=== PATIENT | male | born 1985 | race African-American/Black ===

== ENCOUNTER 2019-04-25 00:29 | Emergency (ER) | payer MEDICAID, OTHER ==
[2019-04-25] MEDS ORDERED: Acetaminophen 500 MG Tab PO ONE (00:56)
--- NOTE | 2019-04-25 01:02 | EDM.PDOC ---
ED HPI GENERAL MEDICAL PROBLEM - General Chief Complaint: General Stated Complaint: POSSIBLE HIGH BLOOD PRESSURE Time Seen by Provider: 04/25/19 00:49 - History of Present Illness INITIAL COMMENTS - FREE TEXT/NARRATIVE: HISTORY AND PHYSICAL: History of present illness: The patient is a 33-year-old male with a known history of type 2 diabetes for which he has oral medication and hypercholesterolemia and who follows at [facility] with Dr. Quintero who presents tonight with concerns about feeling pressure throughout his whole body and feeling his blood pumping all over his body and having concerns about being alone and going to sleep. The patient says he was seen last week by his provider and he had not been taking his oral medications for cholesterol and diabetes for about 3 months and he was restarted on those medications. He was told by the provider that his blood pressure was slightly elevated and they would hold off starting him on medications at this time. The patient is also been seen here in our emergency department for tingling throughout his body and other vague symptoms of hypertension and each time was referred to the clinic but was never started on medications. He says that last evening he had a headache but currently he says he has a vague dull headache but not as bad as last night. He has had no recent trauma and has no neck or back pain no nausea or vomiting no visual changes no chest pain or shortness of breath and no fever chills or upper respiratory symptoms. He says that over the last week after being seen by his provider he has been trying to eat more healthily eating fish and vegetables and chicken but prior to that he was eating a non-healthy diet. He has no swelling of hands or legs/feet and he says that his headache is very dull and mild compared to last evening. Last night he did not take anything for his headache. He says that he feels more stressed about what is going on and wants to be checked out. Also in the computer he has a history of postconcussive headaches years ago for which he has been evaluated in the clinic as well as in the ED Review of systems: As per history of present illness and below otherwise all systems reviewed and negative. Past medical history: As per history of present illness and as reviewed below otherwise noncontributory. Surgical history: As per history of present illness and as reviewed below otherwise noncontributory. Social history: No reported history of drug or alcohol abuse. Family history: As per history of present illness and as reviewed below otherwise noncontributory. Physical exam: General: Well-developed well-nourished man who is nontoxic and vital signs are noted by me. I discussed with him on my evaluation his blood pressure HEENT: Atraumatic, normocephalic, pupils reactive, negative for conjunctival pallor or scleral icterus, mucous membranes moist, throat clear, neck supple, nontender, trachea midline. Lungs: Clear to auscultation, breath sounds equal bilaterally, chest nontender. Heart: S1S2, regular, negative for clicks, rubs, or JVD. Abdomen: Soft, nondistended, nontender. Negative for masses or hepatosplenomegaly. Negative for costovertebral tenderness. Pelvis: Stable nontender. Genitourinary: Deferred. Rectal: Deferred. Extremities: Atraumatic, negative for cords or calf pain. Neurovascular unremarkable. No pedal edema or leg asymmetry Neuro: Awake, alert, oriented. Cranial nerves II through XII unremarkable. Cerebellum unremarkable. Motor and sensory unremarkable throughout. Exam nonfocal. Diagnostics: EKG CBC CMP UA with reflex Therapeutics: Tylenol Repeat blood pressure without intervention is 129/88. I have advised the patient to follow-up with his provider in the clinic and to possibly start a blood pressure journal as there seems to be a lot of variability with his blood pressure and his symptomatology. He states understanding Impression: Encounter for medical screening exam, borderline hypertension with history of same Definitive disposition and diagnosis as appropriate pending reevaluation and review of above. head area Pain Score (Numeric/FACES): 8 - Related Data Allergies Allergy/AdvReac Type Severity Reaction Status Date / Time No Known Allergies Allergy Verified 04/25/19 00:39 Home Meds: Home Meds Fenofibrate Nanocrystallized [Fenofibrate] 145 mg PO DAILY 04/25/19 [History] metFORMIN [Glucophage] 500 mg PO BIDMEALS 04/25/19 [History] Past Medical History - Past Health History Medical/Surgical History: Denies Medical/Surgical History HEENT History: Reports: None Cardiovascular History: Reports: High Cholesterol Respiratory History: Reports: None Gastrointestinal History: Reports: None Genitourinary History: Reports: None Musculoskeletal History: Reports: None Neurological History: Reports: None Psychiatric History: Reports: None Endocrine/Metabolic History: Reports: Diabetes, 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 Social Welfare: None Hematologic History: Reports: None Oncologic (Cancer) History: Reports: None Dermatologic History: Reports: None - Infectious Disease History Infectious Disease History: Reports: None - Past Surgical History Head Surgeries/Procedures: Reports: None Cardiovascular Surgical History: Reports: None Endocrine Surgical History: Reports: None Social & Family History - Family History Family Medical History: Noncontributory - Caffeine Use Caffeine Use: Reports: Soda - Recreational Drug Use Recreational Drug Use: No ED ROS GENERAL - Review of Systems Review Of Systems: Comprehensive ROS is negative, except as noted in HPI. ED EXAM, GENERAL - Physical Exam Exam: See Below (See dictation) Course - Vital Signs Last Recorded V/S: Last Vital Signs Temp 35.9 C 04/25/19 00:40 Pulse 84 04/25/19 01:06 Resp 18 04/25/19 00:40 BP 129/88 04/25/19 01:06 Pulse Ox 98 04/25/19 00:40 - Orders/Labs/Meds Orders: Active Orders 24 hr Category Date Time Status EKG Documentation Completion [RC] STAT Care 04/25/19 00:56 Active Labs: Laboratory Tests 04/25/19 04/25/19 04/25/19 Range/Units 00:50 01:01 01:01 WBC 8.05 (4.0-11.0) K/uL RBC 5.37 (4.50-5.90) M/uL Hgb 16.1 (13.0-17.0) g/dL Hct 43.4 (38.0-50.0) % MCV 80.8 (80.0-98.0) fL MCH 30.0 (27.0-32.0) pg MCHC 37.1 H (31.0-37.0) g/dL RDW Std Deviation 34.5 (28.0-62.0) fl RDW Coeff of Aaron 12 (11.0-15.0) % Plt Count 263 (150-400) K/uL MPV 9.80 (7.40-12.00) fL Neut % (Auto) 54.8 (48.0-80.0) % Lymph % (Auto) 32.3 (16.0-40.0) % Hood % (Auto) 7.8 (0.0-15.0) % Eos % (Auto) 4.5 (0.0-7.0) % Baso % (Auto) 0.6 (0.0-1.5) % Neut # (Auto) 4.4 (1.4-5.7) K/uL Lymph # (Auto) 2.6 H (0.6-2.4) K/uL Hood # (Auto) 0.6 (0.0-0.8) K/uL Eos # (Auto) 0.4 (0.0-0.7) K/uL Baso # (Auto) 0.1 (0.0-0.1) K/uL Sodium 131 L (136-148) mmol/L Potassium 3.3 L (3.5-5.1) mmol/L Chloride 96 L (98-107) mmol/L Carbon Dioxide 28.1 (21.0-32.0) mmol/L BUN 19 H (7.0-18.0) mg/dL Creatinine 0.9 (0.8-1.3) mg/dL Est Cr Clr Drug Dosing 114.56 mL/min Estimated GFR (MDRD) > 60.0 ml/min Glucose 187 H (74-106) mg/dL Calcium 8.9 (8.5-10.1) mg/dL Total Bilirubin 0.4 (0.2-1.0) mg/dL AST 20 (15-37) IU/L ALT 44 (14-63) IU/L Alkaline Phosphatase 94 (46-116) U/L Total Protein 8.1 (6.4-8.2) g/dL Albumin 4.0 (3.4-5.0) g/dL Globulin 4.1 H (2.6-4.0) g/dL Albumin/Globulin Ratio 1.0 (0.9-1.6) Urine Color YELLOW Urine Appearance CLEAR Urine pH 6.0 (5.0-8.0) Ur Specific [place] 1.010 (1.001-1.035) Urine Protein NEGATIVE (NEGATIVE) mg/dL Urine Glucose (UA) NEGATIVE (NEGATIVE) mg/dL Urine Ketones NEGATIVE (NEGATIVE) mg/dL Urine Occult Blood NEGATIVE (NEGATIVE) Urine Nitrite NEGATIVE (NEGATIVE) Urine Bilirubin NEGATIVE (NEGATIVE) Urine Urobilinogen 0.2 (<2.0) EU/dL Ur Leukocyte Esterase NEGATIVE (NEGATIVE) Meds: Medications Discontinued Medications Generic Name Dose Route Start Last Admin Trade Name Beatriz PRN Reason Stop Dose Admin Acetaminophen 1,000 mg 04/25/19 00:56 04/25/19 01:09 Tylenol Extra Strength PO 04/25/19 00:57 1,000 mg ONETIME ONE Administration Departure - Departure Time of Disposition: 01:38 Disposition: Home, Self-Care 01 Condition: Good Clinical Impression: Encounter for medical screening examination, Episode of hypertension - Discharge Information Referrals: Fercho Quintero MD [Primary Care Provider] - Forms: ED Department Discharge Additional Instructions: The following information is given to patients seen in the emergency department who are being discharged to home. This information is to outline your options for follow-up care. We provide all patients seen in our emergency department with a follow-up referral. The need for follow-up, as well as the timing and circumstances, are variable depending upon the specifics of your emergency department visit. If you don't have a primary care physician on staff, we will provide you with a referral. We always advise you to contact your personal physician following an emergency department visit to inform them of the circumstance of the visit and for follow-up with them and/or the need for any referrals to a consulting specialist. The emergency department will also refer you to a specialist when appropriate. This referral assures that you have the opportunity for followup care with a specialist. All of these measure are taken in an effort to provide you with optimal care, which includes your followup. Under all circumstances we always encourage you to contact your private physician who remains a resource for coordinating your care. When calling for followup care, please make the office aware that this follow-up is from your recent emergency room visit. If for any reason you are refused follow-up, please contact the [facility] emergency department at and ask to speak to the emergency department charge nurse. [address] [place] [place] [address] Please watch your salt and sodium intake and call your provider in the clinic and discuss tonight's ED visit and concerns about blood pressure and possible need for low-dose medication as we discussed. Return to ER as needed and as discussed. Please continue your home medications as prescribed to you. Sepsis Event Note - Evaluation Sepsis Screening Result: No Definite Risk - Focused Exam Vital Signs: Vital Signs Temp Pulse Resp BP Pulse Ox 04/25/19 01:06 84 129/88 04/25/19 00:40 35.9 C 90 18 145/102 H 98 Date Exam was Performed: 04/25/19 Time Exam was Performed: 01:38 - My Orders Last 24 Hours: My Active Orders 04/25/19 00:56 EKG Documentation Completion [RC] STAT - Assessment/Plan Last 24 Hours: My Active Orders 04/25/19 00:56 EKG Documentation Completion [RC] STAT
[2019-04-25 01:24] LABS: BLOOD UREA NITROGEN,BUN 19 mg/dL (7.0-18.0); CARBON DIOXIDE,CO2 28.1 mmol/L (21.0-32.0); CHLORIDE,CL 96 mmol/L (98-107); GLUCOSE RANDOM 187 mg/dL (74-106); POTASSIUM,K 3.3 mmol/L (3.5-5.1); SODIUM,NA 131 mmol/L (136-148)
[2019-04-25 01:41] VITALS: BP 130/95; PULSE 80
== END 2019-04-25 01:45 | disposition home or self-care (01) ==
LOC: MW.ED 00:29
DX: I10 Essential (primary) hypertension (principal); E11.9 Type 2 diabetes mellitus without complications; Z79.84 Long term (current) use of oral hypoglycemic drugs
CPT/HCPCS: 36415; 80053; 81003; 85025; 93005; 99284; A9270

== ENCOUNTER 2019-11-13 23:33 | Emergency (ER) | payer SELFPAY ==
--- NOTE | 2019-11-14 01:18 | EDM.PDOC ---
ED HPI GENERAL MEDICAL PROBLEM - General Chief Complaint: Diabetic Complaint Stated Complaint: HIGH BLOOD SUGAR Time Seen by Provider: 11/14/19 00:08 - History of Present Illness INITIAL COMMENTS - FREE TEXT/NARRATIVE: History of present illness: 34-year-old male presenting with elevated glucose levels. He is a type II diabetic who takes metformin 1000 mg twice daily. He does admit that in the last few weeks he has not been very compliant with his metformin as he often forgets to take it in the evening. Some days he does not take it at all. Today he checked his glucose level and it was in the 300s and he was concerned that he may have a coma and as he lives alone he wanted to get checked out. He does report that he has been having some dry mouth, however no other symptoms. He also reports that he has plenty of the medication left and he has not run out of the prescription and does still have 1 extra refill as well. And he has an appointment with his PCP in the next week. Review of systems: As per history of present illness and below otherwise all systems reviewed and negative. Past medical history: As per history of present illness and as reviewed below otherwise noncontributory. Type 2 diabetes Surgical history: As per history of present illness and as reviewed below otherwise noncontributory. Social history: No reported history of drug or alcohol abuse. No tobacco Family history: As per history of present illness and as reviewed below otherwise noncontributory. Physical exam: GEN: no acute distress, well appearing HEENT: Atraumatic, normocephalic, mucous membranes moist, Neck: supple. Lungs: No respiratory distress. Heart: RRR Extremities: Atraumatic. Neurovascularly intact. Neuro: Awake, alert, oriented. Neuro Exam nonfocal. Skin: warm, dry, no lesions Diagnostics: Labs Therapeutics: [] MDM: Impression: [] Plan: [] Definitive disposition and diagnosis as appropriate pending reevaluation and review of above. - Related Data Allergies Allergy/AdvReac Type Severity Reaction Status Date / Time No Known Allergies Allergy Verified 11/13/19 23:50 Home Meds: Home Meds Fenofibrate Nanocrystallized [Fenofibrate] 145 mg PO DAILY 04/25/19 [History] metFORMIN [Glucophage] 1,000 mg PO BIDMEALS 04/25/19 [History] Past Medical History - Past Health History Medical/Surgical History: Denies Medical/Surgical History HEENT History: Reports: None Cardiovascular History: Reports: High Cholesterol Respiratory History: Reports: None Gastrointestinal History: Reports: None Genitourinary History: Reports: None Musculoskeletal History: Reports: None Neurological History: Reports: None Psychiatric History: Reports: None Endocrine/Metabolic History: Reports: Diabetes, 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 Bilingual: None Hematologic History: Reports: None Oncologic (Cancer) History: Reports: None Dermatologic History: Reports: None - Infectious Disease History Infectious Disease History: Reports: None - Past Surgical History Head Surgeries/Procedures: Reports: None Cardiovascular Surgical History: Reports: None Endocrine Surgical History: Reports: None Social & Family History - Family History Family Medical History: Noncontributory - Tobacco Use Smoking Status *Q: Current Every Day Smoker Years of Tobacco use: 10 Packs/Tins Daily: 0.5 - Caffeine Use Caffeine Use: Reports: Coffee - Recreational Drug Use Recreational Drug Use: No ED ROS GENERAL - Review of Systems Review Of Systems: See Below (See HPI) ED EXAM GENERAL NO PERIP PULSE - Physical Exam Exam: See Below (See HPI) Course - Vital Signs Text/Narrative:: Elevated glucose level here. Type II diabetic. He did take his 1000 mg of metformin just prior to coming in. Discussed with the patient need to be consistent about taking his metformin every day as prescribed. He did voice understanding and will attempt to be better about continued dosing. POC glucose on arrival here 306. Will check full labs. CBC and chemistry unremarkable other than elevated glucose level. Stable for discharge home and keep upcoming appointment with his PCP in the next week. Last Recorded V/S: Last Vital Signs Temp 97.6 F 11/13/19 23:41 Pulse 85 11/13/19 23:41 Resp 18 11/13/19 23:41 BP 148/103 H 11/13/19 23:41 Pulse Ox 97 11/13/19 23:41 - Orders/Labs/Meds Labs: Laboratory Tests 11/13/19 11/14/19 11/14/19 Range/Units 23:40 00:54 00:54 WBC 7.20 (4.0-11.0) K/uL RBC 5.15 (4.50-5.90) M/uL Hgb 15.2 (13.0-17.0) g/dL Hct 42.1 (38.0-50.0) % MCV 81.7 (80.0-98.0) fL MCH 29.5 (27.0-32.0) pg MCHC 36.1 (31.0-37.0) g/dL RDW Std Deviation 34.8 (28.0-62.0) fl RDW Coeff of Aaron 12 (11.0-15.0) % Plt Count 222 (150-400) K/uL MPV 10.10 (7.40-12.00) fL Neut % (Auto) 61.6 (48.0-80.0) % Lymph % (Auto) 28.8 (16.0-40.0) % [place] % (Auto) 6.4 (0.0-15.0) % Eos % (Auto) 2.6 (0.0-7.0) % Baso % (Auto) 0.6 (0.0-1.5) % Neut # (Auto) 4.4 (1.4-5.7) K/uL Lymph # (Auto) 2.1 (0.6-2.4) K/uL [place] # (Auto) 0.5 (0.0-0.8) K/uL Eos # (Auto) 0.2 (0.0-0.7) K/uL Baso # (Auto) 0.0 (0.0-0.1) K/uL Sodium 136 (136-148) mmol/L Potassium 3.9 (3.5-5.1) mmol/L Chloride 99 (98-107) mmol/L Carbon Dioxide 25.5 (21.0-32.0) mmol/L BUN 19 H (7.0-18.0) mg/dL Creatinine 1.0 (0.8-1.3) mg/dL Est Cr Clr Drug Dosing 102.12 mL/min Estimated GFR (MDRD) > 60.0 ml/min Glucose 305 H (74-106) mg/dL POC Glucose 306 H (60-110) mg/dL Calcium 8.9 (8.5-10.1) mg/dL Total Bilirubin 0.4 (0.2-1.0) mg/dL AST 9 L (15-37) IU/L ALT 31 (14-63) IU/L Alkaline Phosphatase 81 (46-116) U/L Total Protein 7.9 (6.4-8.2) g/dL Albumin 4.0 (3.4-5.0) g/dL Globulin 3.9 (2.6-4.0) g/dL Albumin/Globulin Ratio 1.0 (0.9-1.6) - Re-Assessments/Exams Free Text/Narrative Re-Assessment/Exam: 11/14/19 01:28 Patient feeling well and in no acute distress. Discussed results and need to continue taking the metformin reliably daily and continue to check finger glucose levels. Departure - Departure Time of Disposition: 01:29 Disposition: Home, Self-Care 01 Clinical Impression: Hyperglycemia due to type 2 diabetes mellitus - Discharge Information Instructions: Complementary and Alternative Medical Therapies for Diabetes, Diabetes and Exercise-SportsMed, Hyperglycemia, [id number], Type 2 Diabetes Mellitus, Self Care, Adult, [id number], Preventing Diabetes Mellitus Complications, Type 2 Diabetes Mellitus, Diagnosis, Adult, [id number], Blood Glucose Monitoring, Adult Referrals: Fercho Quintero MD [Primary Care Provider] - 1 Week (Needed to take your metf ormin twice daily. Check your glucose 1-2 times a day. Keep your appointment with Dr. Quintero.) Forms: ED Department Discharge Additional Instructions: The following information is given to patients seen in the emergency department who are being discharged to home. This information is to outline your options for follow-up care. We provide all patients seen in our emergency department with a follow-up referral. The need for follow-up, as well as the timing and circumstances, are variable depending upon the specifics of your emergency department visit. If you don't have a primary care physician on staff, we will provide you with a referral. We always advise you to contact your personal physician following an emergency department visit to inform them of the circumstance of the visit and for follow-up with them and/or the need for any referrals to a consulting specialist. The emergency department will also refer you to a specialist when appropriate. This referral assures that you have the opportunity for follow-up care with a specialist. All of these measure are taken in an effort to provide you with optimal care, which includes your follow-up. Under all circumstances we always encourage you to contact your private physician who remains a resource for coordinating your care. When calling for follow-up care, please make the office aware that this follow-up is from your recent emergency room visit. If for any reason you are refused follow-up, please contact the [facility] Emergency Department at and asked to speak to the emergency department charge nurse. Sepsis Event Note (ED) - Evaluation Sepsis Screening Result: No Definite Risk - Focused Exam Vital Signs: Vital Signs Temp Pulse Resp BP Pulse Ox 11/13/19 23:41 97.6 F 85 18 148/103 H 97
[2019-11-14 01:25] LABS: BLOOD UREA NITROGEN,BUN 19 mg/dL (7.0-18.0); CARBON DIOXIDE,CO2 25.5 mmol/L (21.0-32.0); CHLORIDE,CL 99 mmol/L (98-107); GLUCOSE RANDOM 305 mg/dL (74-106); POTASSIUM,K 3.9 mmol/L (3.5-5.1); SODIUM,NA 136 mmol/L (136-148)
[2019-11-14 03:32] VITALS: BP 133/90; PULSE 79
== END 2019-11-14 02:02 | disposition home or self-care (01) ==
LOC: MW.ED 23:33
DX: E11.65 Type 2 diabetes mellitus with hyperglycemia (principal); F17.210 Nicotine dependence, cigarettes, uncomplicated; E78.00 Pure hypercholesterolemia, unspecified; Z79.84 Long term (current) use of oral hypoglycemic drugs; Z79.899 Other long term (current) drug therapy
CPT/HCPCS: 36415; 80053; 82962; 85025; 99283; 99284

== ENCOUNTER 2021-08-20 08:57 | Emergency (ER) | payer BC, OTHER ==
[2021-08-20 10:01] LABS: BLOOD UREA NITROGEN,BUN 9 mg/dL (7.0-18.0); CARBON DIOXIDE,CO2 29.2 mmol/L (21.0-32.0); CHLORIDE,CL 94 mmol/L (98-107); GLUCOSE RANDOM 250 mg/dL (74-106); POTASSIUM,K 4.1 mmol/L (3.5-5.1); SODIUM,NA 134 mmol/L (136-148)
[2021-08-20 13:33] VITALS: BP 143/103; PULSE 95
[2021-08-20] MEDS ORDERED: Iopamidol 755 MG/ML 500 ML Multipack Bottle IVPUSH ONE (15:35)
== END 2021-08-20 12:54 | disposition home or self-care (01) ==
LOC: MW.ED 08:57
DX: K52.9 Noninfective gastroenteritis and colitis, unspecified (principal); E11.9 Type 2 diabetes mellitus without complications; Z79.84 Long term (current) use of oral hypoglycemic drugs
CPT/HCPCS: 36415; 74177; 80053; 81001; 85025; 99285; Q9967; 99284

== ENCOUNTER 2021-08-28 20:21 | Emergency (ER) | payer OTHER ==
[2021-08-28] MEDS ORDERED: Sodium Chloride 0.9% 1,000 ML IV ONE (20:25)
[2021-08-28 21:18] LABS: BLOOD UREA NITROGEN,BUN 10 mg/dL (7.0-18.0); CARBON DIOXIDE,CO2 20.7 mmol/L (21.0-32.0); CHLORIDE,CL 97 mmol/L (98-107); GLUCOSE RANDOM 267 mg/dL (74-106); POTASSIUM,K 3.2 mmol/L (3.5-5.1); SODIUM,NA 134 mmol/L (136-148)
[2021-08-29 00:05] VITALS: BP 132/64; PULSE 71
== END 2021-08-28 23:40 | disposition home or self-care (01) ==
LOC: MW.ED 20:21
DX: F10.129 Alcohol abuse with intoxication, unspecified (principal); E11.9 Type 2 diabetes mellitus without complications; Z79.84 Long term (current) use of oral hypoglycemic drugs; Z79.899 Other long term (current) drug therapy; Z20.822 Contact with and (suspected) exposure to COVID-19
CPT/HCPCS: 36415; 51701; 70450; 71045; 80053; 80305; 80307; 81003; 84484; 85025; 87635; 93005; 99285; J7030; U0002

== ENCOUNTER 2021-11-07 21:29 | Emergency (ER) | payer OTHER ==
[2021-11-07 21:58] VITALS: BP 0/0; PULSE 0
[2021-11-07] MEDS ORDERED: Amiodarone 150 MG in Dextrose 5% in Water 100 ML IV STA ×2 (22:08)
[2021-11-07] MEDS ORDERED: Sodium Bicarbonate 8.4% 50 MEQ/50 ML Syringe IVPUSH STA (22:08)
[2021-11-07] MEDS ORDERED: Calcium Chloride 10% 1 GM/10 ML Syringe IVPUSH STA (22:09)
[2021-11-07] MEDS ORDERED: Sodium Chloride 0.9% 1,000 ML IV ONE ×2 (22:10→22:11)
[2021-11-07] MEDS ORDERED: Esmolol 100 MG/10 ML SDV IV STA (22:10)
== END 2021-11-07 21:45 | disposition expired ==
LOC: EDBD 21:29 → MERGE 21:29 → MW.ED 21:29
DX: I46.9 Cardiac arrest, cause unspecified (principal)
CPT/HCPCS: 31500; 92950; 96374; 96375; 99285; 99285-25